=== PATIENT | female | born 1970 | race Caucasian/White ===

== ENCOUNTER 2017-06-28 23:00 | Inpatient (IN) | payer MEDICAID ==
[~2017-06-28] VITALS: Ht 160 cm; Wt 88.5 kg
[~2017-06-28 23:00] MED LIST: ASPI-1160 PO; ATOR20TA PO; BENA40TA66 PO; FENO67CA2 PO; GLIP5TAB12 PO; LEVO500T2 PO
[2017-06-28] MEDS ORDERED: MORPHINE SULFATE 4 MG/ML CPJ (NOT FOR IM USE) IV STA (23:15)
[2017-06-28] MEDS ORDERED: SODIUM CHLORIDE 0.9% 1,000 ML IV ONE (23:15)
[2017-06-28 23:52] LABS: HEMATOCRIT. 30.4 % (36.0-48.0); MEAN CORPUSCULAR HEMOGLOBIN 29.1 pg (28.0-32.0); MEAN CORPUSCULAR VOLUME 88.3 fL (81.0-99.0); MEAN PLATELET VOLUME 6.7 fl (7.4-10.4); PLATELET 344 x1000/uL (130-400); RED BLOOD CELL COUNT 3.44 mill/uL (4.2-5.4); RED CELL DISTRIBUTION WIDTH 14.6 % (11.6-14.6)
[2017-06-28 23:58] LABS: PROTHROMBIN TIME 10.3 sec (9.4-11.6)
[2017-06-29 00:04] LABS: HCG SCREEN NEGATIVE
[2017-06-29] MEDS ORDERED: ONDANSETRON HCL 4MG/2ML VIAL IV STA (00:13)
[2017-06-29 00:16] LABS: CARBON DIOXIDE 22 mEq/L (21-32); CHLORIDE 105 mEq/L (98-107); ETHANOL BLOOD < 10 mg/dL; TROPONIN I < 0.02 ng/mL (0.00-0.04)
[2017-06-29 01:55] LABS: PLATELET ESTIMATE NORMAL
[2017-06-29] MEDS ORDERED: MORPHINE SULFATE 2 MG/ML CPJ (NOT FOR IM USE) IV STA (03:58)
[2017-06-29] MEDS ORDERED: HYDROCODONE/ACETAMINOPHEN 5/325MG TABLET PO PRN ×2 (12:30→20:00)
[2017-06-29 16:50] VITALS: BP 123/65
[2017-06-29] MEDS ORDERED: CLONIDINE 0.1MG TABLET PO PRN (20:00)
[2017-06-29] MEDS ORDERED: ONDANSETRON HCL 4MG/2ML VIAL IV PRN (20:00)
[2017-06-29] MEDS ORDERED: MAGNESIUM/ALUMINUM HYDROXIDE/SIMETHICONE 30ML UDC PO PRN (20:00)
[2017-06-29] MEDS ORDERED: ACETAMINOPHEN 325MG TABLET PO PRN (20:00)
[2017-06-29] MEDS ORDERED: ENOXAPARIN 30MG/0.3ML SYR SUBCUT SCH (20:00)
[2017-06-29] MEDS ORDERED: IPRATROPIUM/ALBUTEROL 0.5-3(2.5)MG/3ML NEB INH PRN (20:00)
[2017-06-29] MEDS ORDERED: GLIPIZIDE 5MG TABLET PO SCH (20:15)
[2017-06-29] MEDS ORDERED: DEXTROSE 50% WATER 50ML SYRINGE IV PRN (20:15)
[2017-06-29] MEDS: INSULIN LISPRO 100 UNITS/ML SUBCUT SCH (20:38)
[2017-06-29] MEDS: BLOOD SUGAR DIAGNOSTIC STRIP TEST SCH (20:38)
[2017-06-29] MEDS: SODIUM CHLORIDE 0.9% 1,000 ML IV SCH (20:48)
[2017-06-29] MEDS: BENAZEPRIL 20MG TABLET PO SCH (20:51)
[2017-06-29] MEDS: ASPIRIN 81MG TABLET PO SCH (20:51)
[2017-06-29] MEDS ORDERED: ATORVASTATIN CALCIUM 20MG TABLET PO SCH (21:00)
[2017-06-29] MEDS ORDERED: HYDROMORPHONE HCL/PF 2MG/ML CPJ IV NR (21:00)
[2017-06-29] MEDS ORDERED: LEVOFLOXACIN 500MG PREMIX 100 ML IV NR (21:00)
[2017-06-29 21:26] VITALS: BP 142/84
[2017-06-29] MEDS: FENOFIBRATE NANOCRYSTALLIZED 48MG TABLET PO SCH (21:28)
[2017-06-29 23:26] LABS: CARBON DIOXIDE 26 mEq/L (21-32); CHLORIDE 104 mEq/L (98-107); CREATINE KINASE 65 IU/L (26-192); CREATINE KINASE MB FRACTION < 0.5 ng/mL (0.5-3.6); TROPONIN I < 0.02 ng/mL (0.00-0.04)
[2017-06-30] VITALS: BP 121/71
[2017-06-30 04:00] VITALS: BP 102/64
[2017-06-30] MEDS: INSULIN LISPRO 100 UNITS/ML SUBCUT SCH ×2 (06:28→12:40)
[2017-06-30] MEDS: BLOOD SUGAR DIAGNOSTIC STRIP TEST SCH ×2 (06:29→12:40)
[2017-06-30 07:47] VITALS: BP 132/83
[2017-06-30 07:50] LABS: HEMATOCRIT. 29.1 % (36.0-48.0); HEMOGLOBIN. 9.7 g/dL (12.0-16.0); MEAN CORPUSCULAR HEMOGLOBIN 29.7 pg (28.0-32.0); MEAN CORPUSCULAR VOLUME 88.8 fL (81.0-99.0); PLATELET 346 x1000/uL (130-400); RED BLOOD CELL COUNT 3.28 mill/uL (4.2-5.4); RED CELL DISTRIBUTION WIDTH 14.5 % (11.6-14.6)
[2017-06-30 07:58] LABS: CREATINE KINASE 56 IU/L (26-192); CREATINE KINASE MB FRACTION 0.5 ng/mL (0.5-3.6)
[2017-06-30 07:59] LABS: CARBON DIOXIDE 24 mEq/L (21-32); CHLORIDE 104 mEq/L (98-107); TROPONIN I < 0.02 ng/mL (0.00-0.04)
[2017-06-30 08:13] LABS: HDL CHOLESTEROL 40 mg/dL (40-59); LDL CHOLESTEROL 100 mg/dL (5-100)
[2017-06-30] MEDS ORDERED: GLIPIZIDE 5MG TABLET PO SCH (09:00)
[2017-06-30] MEDS: ASPIRIN 81MG TABLET PO SCH (10:14)
[2017-06-30] MEDS: SODIUM CHLORIDE 0.9% 1,000 ML IV SCH (10:14)
[2017-06-30] MEDS: BENAZEPRIL 20MG TABLET PO SCH (10:15)
[2017-06-30] MEDS: FENOFIBRATE NANOCRYSTALLIZED 48MG TABLET PO SCH (10:15)
[2017-06-30] MEDS ORDERED: CEPH-569 PO (11:21)
[2017-06-30] MEDS ORDERED: HYDR-523 PO (11:22)
[2017-06-30 11:42] LABS: CLARITY URINE CLOUDY (CLEAR); COLOR URINE YELLOW (YELLOW); GLUCOSE URINE NEGATIVE (NEGATIVE); KETONES URINE NEGATIVE (NEGATIVE); LEUKOCYTE ESTERASE URINE 3+ (NEGATIVE); NITRITE URINE POSITIVE (NEGATIVE); OCCULT BLOOD URINE 1+ (NEGATIVE); PROTEIN URINE 2+ (NEGATIVE); SPECIFIC GRAVITY URINE 1.013 (1.005-1.030); UROBILINOGEN URINE 0.2 E.U./dL (0.2-1.0)
[2017-06-30 12:00] VITALS: BP 122/78
[2017-06-30 17:08] LABS: PLATELET ESTIMATE NORMAL
[2017-06-30] MEDS ORDERED: LEVOFLOXACIN 250MG PREMIX 50 ML IV SCH (20:00)
== END 2017-06-30 14:05 | disposition home or self-care (01) | DRG 466 ==
LOC: ER 23:00 → 8WST 06-29 02:29 → ENRESERV 06-29 15:51
PROVIDERS: ADMIT Internal Medicine; ATTEND Internal Medicine
DX: T83.123A Displacement of other urinary stents, initial encounter (principal); E43 Unspecified severe protein-calorie malnutrition; E11.22 Type 2 diabetes mellitus with diabetic chronic kidney disease; N17.9 Acute kidney failure, unspecified; D64.9 Anemia, unspecified; D72.829 Elevated white blood cell count, unspecified; E66.9 Obesity, unspecified; E78.5 Hyperlipidemia, unspecified; I12.9 Hypertensive chronic kidney disease with stage 1 through stage 4 chronic kidney disease, or unspecified chronic kidney disease; K43.9 Ventral hernia without obstruction or gangrene; K59.00 Constipation, unspecified; N13.30 Unspecified hydronephrosis; Y84.6 Urinary catheterization as the cause of abnormal reaction of the patient, or of later complication, without mention of misadventure at the time of the procedure; N18.3 Chronic kidney disease, stage 3 (moderate); Z79.84 Long term (current) use of oral hypoglycemic drugs; Z79.899 Other long term (current) drug therapy; Z82.49 Family history of ischemic heart disease and other diseases of the circulatory system; Z83.3 Family history of diabetes mellitus; Z85.048 Personal history of other malignant neoplasm of rectum, rectosigmoid junction, and anus; Z90.49 Acquired absence of other specified parts of digestive tract; Z93.3 Colostomy status; Z68.34 Body mass index [BMI] 34.0-34.9, adult; Z88.6 Allergy status to analgesic agent; Z79.82 Long term (current) use of aspirin; Y92.89 Other specified places as the place of occurrence of the external cause
CPT/HCPCS: 36415; 74176; 76770; 80048; 80053; 80061; 81001; 82550; 82553; 82962; 83605; 83690; 83735; 84443; 84484; 84703; 85007; 85025; 85027; 85610; 87040; 87077; 87086; 87186; 93970; 96361; 96374; 96375; 96376; 99285; G0482; J1170; J1650; J1815; J1956; J2270; J2405; J7030; J7050

== ENCOUNTER 2021-01-20 02:52 | Emergency (ER) | payer MEDICAID ==
[~2021-01-20] VITALS: Ht 152.4 cm; Wt 73.0 kg
[~2021-01-20 02:52] MED LIST changes: +CEPH-569 PO; +HYDR-523 PO; -LEVO500T2 PO
[2021-01-20] MEDS ORDERED: IBUPROFEN 400MG TABLET PO ONE (03:30)
[2021-01-20] MEDS ORDERED: IBUP-2028 MT (05:49)
[2021-01-20 06:40] VITALS: BP 144/80
== END 2021-01-20 06:45 | disposition home or self-care (01) ==
LOC: ER 02:52
DX: S39.012A Strain of muscle, fascia and tendon of lower back, initial encounter (principal); S00.83XA Contusion of other part of head, initial encounter; S90.02XA Contusion of left ankle, initial encounter; M25.512 Pain in left shoulder; M79.605 Pain in left leg; I10 Essential (primary) hypertension; E11.9 Type 2 diabetes mellitus without complications; W05.0XXA Fall from non-moving wheelchair, initial encounter; Y93.89 Activity, other specified; Y92.520 Airport as the place of occurrence of the external cause; Z85.9 Personal history of malignant neoplasm, unspecified; Z93.3 Colostomy status
CPT/HCPCS: 72100; 73030; 73610; 99284

== ENCOUNTER 2022-12-21 18:03 | Emergency (ER) | payer MEDICAID, OTHER ==
[~2022-12-21] VITALS: Ht 152.4 cm; Wt 91.0 kg
[~2022-12-21 18:03] MED LIST changes: +IBUP-2028 MT
[2022-12-21 18:30] VITALS: BP 126/75
[2022-12-21 22:04] LABS: EOSINOPHILS % 1.5 % (0.0-5.0); HEMATOCRIT. 37.7 % (36.0-48.0); HEMOGLOBIN. 12.2 g/dL (12.0-16.0); LYMPHOCYTES % 12.4 % (20.0-50.0); MEAN CORPUSCULAR HEMOGLOBIN 30.4 pg (28.0-32.0); MEAN CORPUSCULAR VOLUME 94.4 fL (81.0-99.0); MEAN PLATELET VOLUME 7.2 fl (7.4-10.4); MONOCYTES % 4.3 % (2.0-8.0); NEUTROPHILS % 80.8 % (40.0-76.0); PLATELET 462 x1000/uL (130-400); RED CELL DISTRIBUTION WIDTH 14.9 % (11.6-14.6)
[2022-12-21 22:13] LABS: CHLORIDE 118 mEq/L (98-107)
[2022-12-21 22:17] LABS: INR 0.9
[2022-12-21] MEDS ORDERED: AMOX1TAB15 MT (22:38)
== END 2022-12-21 23:00 | disposition left against medical advice (07) ==
LOC: ER 18:03
DX: H70.93 Unspecified mastoiditis, bilateral (principal); E11.10 Type 2 diabetes mellitus with ketoacidosis without coma; H91.93 Unspecified hearing loss, bilateral; Z85.038 Personal history of other malignant neoplasm of large intestine; Z93.3 Colostomy status; Z79.82 Long term (current) use of aspirin; Z79.899 Other long term (current) drug therapy
CPT/HCPCS: 36415; 71045; 80053; 85025; 99285

== ENCOUNTER 2024-01-09 21:32 | Emergency (ER) | payer OTHER, MEDICAID ==
[~2024-01-09] VITALS: Ht 160 cm; Wt 79.0 kg
[~2024-01-09 21:32] MED LIST changes: +AMOX1TAB15 MT; -GLIP5TAB12 PO; +GLIP5TAB22 PO
[2024-01-09 22:15] VITALS: TEMP 98.2; O2SAT 100
[2024-01-10] MEDS ORDERED: IBUP-2029 MT (01:06)
[2024-01-10 01:11] VITALS: BP 153/92; PULSE 96; RESP 15
[2024-01-10] MEDS: KETOROLAC 30MG/ML VIAL IM ONE (01:11)
== END 2024-01-10 01:29 | disposition home or self-care (01) ==
LOC: ER 21:32
DX: I80.252 Phlebitis and thrombophlebitis of left calf muscular vein (principal); E11.9 Type 2 diabetes mellitus without complications; I10 Essential (primary) hypertension; Z85.9 Personal history of malignant neoplasm, unspecified; Z98.890 Other specified postprocedural states
CPT/HCPCS: 99285; 93971; 96372; J1885; Z7610